=== PATIENT | female | born 1975 | race Caucasian/White ===

== ENCOUNTER 2017-08-09 09:45 | Emergency (ER) | payer BC, OTHER ==
[2017-08-09 13:03] LABS: URINE PH (Dip) POC 5.5 (5.0-8.5)
[2017-08-09 13:03] LABS: URINE BLOOD (Dip) POC 1+ (NEGATIVE); URINE GLUCOSE (Dip) POC Negative (NEGATIVE); URINE KETONES (Dip) POC Negative (NEGATIVE); URINE LEUKOCYTE EST (Dip) POC Negative (NEGATIVE); URINE NITRITE (Dip) POC Negative (NEGATIVE); URINE TOTAL PROTEIN POC Negative (NEGATIVE)
[2017-08-09] MEDS: DIAZEPAM 5 MG TAB PO ×2 (13:09→13:33)
[2017-08-09] MEDS: KETOROLAC 30 MG INJ IM ×2 (13:09→13:34)
== END 2017-08-09 15:02 | disposition home or self-care (01) ==
LOC: FTE 09:45
DX: M54.41 Lumbago with sciatica, right side (principal); M54.42 Lumbago with sciatica, left side; K59.00 Constipation, unspecified
CPT/HCPCS: 72100; 81003; 96372; 99284-25

== ENCOUNTER 2018-09-07 10:29 | Emergency (ER) | payer OTHER, BC ==
[2018-09-07] MEDS: KETOROLAC 30 MG INJ IM (13:08)
== END 2018-09-07 13:28 | disposition home or self-care (01) ==
LOC: FTE 10:29
DX: J06.9 Acute upper respiratory infection, unspecified (principal)
CPT/HCPCS: 81025; 96372; 99284-25